=== PATIENT | male | born 1955 | race Caucasian/White ===

== ENCOUNTER 2017-05-10 21:18 | Emergency (ER) | payer OTHER ==
[~2017-05-10] VITALS: Ht 162.6 cm; Wt 82.6 kg
[2017-05-10 21:27] VITALS: BP 139/84
[2017-05-10] MEDS ORDERED: predniSONE 20 MG TABLET ONE (22:24)
[2017-05-10] MEDS ORDERED: ALBUTEROL FS 2.5 MG/3 ML VIAL.NEB ONE (22:30)
[2017-05-10] MEDS ORDERED: IPRATROPIUM NEB FS 0.5 MG/2.5 ML AMPUL.NEB NEB ONE (22:30)
[2017-05-10] MEDS ORDERED: ALBUTEROL FS 2.5 MG/3 ML VIAL.NEB NEB ONE (22:30)
[2017-05-10] MEDS ORDERED: predniSONE 20 MG TABLET PO ONE (22:30)
[2017-05-10] MEDS ORDERED: IPRATROPIUM NEB FS 0.5 MG/2.5 ML AMPUL.NEB ONE (22:30)
== END 2017-05-10 23:22 | disposition home or self-care (01) ==
LOC: ER 21:18
DX: J20.9 Acute bronchitis, unspecified (principal); E11.9 Type 2 diabetes mellitus without complications; Z89.612 Acquired absence of left leg above knee
CPT/HCPCS: 71010; 94640; 99283; A4606; J7512; Z7610

== ENCOUNTER 2018-01-04 17:58 | Inpatient (IN) | payer OTHER ==
[~2018-01-04] VITALS: Ht 162.6 cm; Wt 67.3 kg
--- NOTE | 2018-01-04 18:10 | NUR ---
PT A/O X2 CONFUSED. FAMILY AT BED SIDE. NEG SOB. NEG DISTRESS. VSS. SAFETY MEASURES IN PLACE.
[2018-01-04 18:23] LABS: BASOPHILS # (AUTO) 0.1 /CMM (0.0-0.2); BASOPHILS % (AUTO) 0.6 % (0.0-2.0); EOSINOPHILS % (AUTO) 2.5 % (0.0-6.0); HEMATOCRIT 46 % (39-51); HEMOGLOBIN 16.4 g/dL (13.5-17.5); LYMPHOCYTES % (AUTO) 19.3 % (20.0-44.0); MEAN CORPUSCULAR HEMOGLOBIN 29 PG (26.0-33.0); MEAN CORPUSCULAR HGB CONC 36 g/dl (31.0-36.0); MEAN CORPUSCULAR VOLUME 81 fL (80-96); MONOCYTES # (AUTO) 0.7 /CMM (0.1-1.30); MONOCYTES % (AUTO) 6.8 % (2.0-12.0); NEUTROPHILS # (AUTO) 7.1 /CMM (1.8-8.9); NEUTROPHILS % (AUTO) 70.8 % (43.0-81.0); PLATELET COUNT (AUTO) 410 /CMM (150-450); RDW COEFFICIENT OF VARIATION 11.8 (11.5-15.0); RED BLOOD CELL COUNT(AUTO) 5.61 MIL/uL (4.5-6.0); WHITE BLOOD COUNT (AUTO) 10.2 K/uL (4.3-11.0)
[2018-01-04] MEDS ORDERED: WARF-68 PO (18:35)
[2018-01-04] MEDS ORDERED: HYDR-3980 PO (18:35)
[2018-01-04] MEDS ORDERED: GLIM4TAB2 PO (18:35)
[2018-01-04] MEDS ORDERED: SITA100T PO (18:35)
[2018-01-04] MEDS ORDERED: BENA10TA2 PO (18:35)
[2018-01-04] MEDS ORDERED: SERT100T12 PO (18:35)
[2018-01-04] MEDS ORDERED: GABA600T2 PO (18:35)
[2018-01-04] MEDS ORDERED: PRAV20TA4 PO (18:35)
[2018-01-04] MEDS ORDERED: [UNRECOGNIZED DRUG - CODE] (18:35)
[2018-01-04] MEDS ORDERED: ALPR0.5T8 PO (18:38)
[2018-01-04 19:05] LABS: INR 0.95 (0.85-1.15)
[2018-01-04 19:07] LABS: ALANINE AMINOTRANSFERASE 20 U/L (12-78); ALBUMIN 3.8 g/dL (3.4-5.0); ALKALINE PHOSPHATASE 71 U/L (46-116); ASPARTATE AMINOTRANSFERASE 11 U/L (15-37); BILIRUBIN,DIRECT 0.1 mg/dL (0.0-0.2); BILIRUBIN,TOTAL 0.6 mg/dL (0.2-1.0); CALCIUM, SERUM 9.1 mg/dL (8.5-10.1); CARBON DIOXIDE 25 mmol/L (21-32); CHLORIDE 103 mmol/L (98-107); CREATININE 0.9 mg/dL (0.6-1.3); GLUCOSE 264 mg/dL (74-106); POTASSIUM 3.2 mmol/L (3.5-5.1); SODIUM SERUM 139 mmol/L (136-145); UREA NITROGEN, BLOOD 18 mg/dL (7-18)
[2018-01-04 19:10] LABS: TROPONIN I < 0.017 ng/mL (0.00-0.056)
--- NOTE | 2018-01-04 19:14 | NUR ---
RECEIVED REPORT FROM HIREN GAUTHIER FOR MARYJO.
--- NOTE | 2018-01-04 19:49 | NUR ---
CALLED NURSE SUP FOR TELE BED
--- NOTE | 2018-01-04 19:50 | NUR ---
MARGY MENG - VISITOR USE ASSISTANT KEMI HESTER Addendum: 01/04/18 at 2019 by ADITHYA MACI POOLE
[2018-01-04] MEDS ORDERED: ASPIRIN 325 MG TABLET ONE (20:17)
[2018-01-04] MEDS ORDERED: IV NS 0.9% 1,000 ML IV PRN (20:23)
[2018-01-04] MEDS ORDERED: Z GUARD REMEDY 2 OZ OINT TP PRN (20:30)
[2018-01-04] MEDS ORDERED: ACETAMINOPHEN 325 MG TABLET PO PRN (20:30)
[2018-01-04] MEDS ORDERED: MAGNESIUM HYDROXIDE 30 ML UDC PO PRN (20:30)
[2018-01-04] MEDS ORDERED: ASPIRIN 325 MG TABLET PO ONE (20:30)
[2018-01-04] MEDS ORDERED: MAG HYDROX/AL HYDROX/SIMETH 30 ML UDC PO PRN (20:30)
[2018-01-04] MEDS ORDERED: ONDANSETRON HCL/PF 4 MG/2 ML VIAL IVP PRN (20:30)
--- NOTE | 2018-01-04 20:50 | NUR ---
REPORT GIVEN TO ENOCH GIL FOR MARYJO
[2018-01-04] MEDS ORDERED: DEXTROSE 50%-WATER 50 ML DISP.SYRIN IV PRN (21:00)
[2018-01-04] MEDS: GABAPENTIN 300 MG CAPSULE PO SCH (21:00)
--- NOTE | 2018-01-04 21:35 | NUR ---
ADVERTISING SALES ASSISTANT - ADMISSION NOTES Patient received from ED via [facility] for chief complaints of sudden slurred speech per patient and . Labs shows potassium of 3.2. CXR shows lungs clear, Normal heart size, no pleural effusion, no pneumothorax. Head CT shows no acute intracranial hemorrhage, midline shift, extra-axial collection or hydrocephalus. No mild effuse cerebral volume loss. Skin body assessment done. Left AKA in 2011. Per patient and , Only known medical problem is Diabetes. Patient denies any type of pain. NPO for MRI for tomorrow, 01/05/18. Consent signed. Stroke assessment done. Normal breathing with no SOB noted or reported. TELE monitor shows SR, HR 55-58. Belongings list checked and signed with . FULL CODE. Safety measures in place. Oriented in unit. Bed in lowest position with call light within reach. Will continue to monitor and assess patient
--- NOTE | 2018-01-04 21:40 | NUR ---
YOUTH COORDINATOR NOTES - NON-ADMIN MEDS Per Jonny Lee, hold PO meds. Only administer IV and SQ meds. Patient is NPO for MRI tomorrow 01/05/18
[2018-01-04 22:00] VITALS: BP 140/67
[2018-01-04] MEDS: ATORVASTATIN 40 MG TABLET PO SCH (22:00)
[2018-01-04] MEDS: SERTRALINE HCL 50 MG TABLET PO SCH (22:00)
--- NOTE | 2018-01-04 22:53 | NUR ---
INITIAL CAROTID DUPLEX IMAGING SHOWED LARGE CLOT (45-50% OCCLUDED) LOCATED AT RIGHT BULB AREA. INFORMED ATTENDING NURSE (GHAZAL) AND CHARGE NURSE (SHY) OF PRELIMINARY RESULTS.
[2018-01-04] MEDS: POTASSIUM CL. PREMIX PERIPHER. 50 ML IV SCH (23:23)
[2018-01-04] MEDS: ENOXAPARIN SODIUM 40 MG/0.4 ML DISP.SYRIN SQ SCH (23:27)
--- NOTE | 2018-01-04 23:50 | NUR ---
GERIATRIC PHYSICIAN - ULTRASOUND & ECHO RESULT Carotid Artery Ultrasound preliminary result shows prominent focus of mixed atherosclerotic plaque in the right carotid bulb. FISH CLEANER made aware. ECHO preliminary result was also relayed to FISH CLEANER. No new orders indicated at this moment.
[2018-01-04] MEDS: BLOOD SUGAR DIAGNOSTIC 1 EACH STRIP IN SCH (23:53)
--- NOTE | 2018-01-04 23:55 | NUR ---
PULP SCREEN OPERATOR - NON-ADMIN NOTES BS 207. No insulin given. Patient NPO. To be evaluated by speech therapist for swallow eval. No hyper/hypoglycemia signs & symptoms noted.
[2018-01-05] VITALS (7 sets, daily range): BP systolic 138–151; BP diastolic 75–97
[2018-01-05] MEDS: POTASSIUM CL. PREMIX PERIPHER. 50 ML IV SCH (01:00)
--- NOTE | 2018-01-05 05:30 | NUR ---
FILLER SHAKER - POTASSIUM REPLACEMENT Last dose of potassium supplement given @0200. Unable to scan barcode d/t down time. Please see paper eMar.
--- NOTE | 2018-01-05 05:46 | NUR ---
TEXTED DR. ROBERTS FOR MRI APPROVAL.
[2018-01-05 06:22] LABS: BASOPHILS % (AUTO) 0.4 % (0.0-2.0); EOSINOPHILS % (AUTO) 3.3 % (0.0-6.0); HEMATOCRIT 45 % (39-51); HEMOGLOBIN 15.4 g/dL (13.5-17.5); LYMPHOCYTES % (AUTO) 22.4 % (20.0-44.0); MEAN CORPUSCULAR HEMOGLOBIN 29 PG (26.0-33.0); MEAN CORPUSCULAR HGB CONC 34 g/dl (31.0-36.0); MEAN CORPUSCULAR VOLUME 86 fL (80-96); MONOCYTES # (AUTO) 0.7 /CMM (0.1-1.30); MONOCYTES % (AUTO) 7.5 % (2.0-12.0); NEUTROPHILS % (AUTO) 66.4 % (43.0-81.0); PLATELET COUNT (AUTO) 385 /CMM (150-450); RDW COEFFICIENT OF VARIATION 12.8 (11.5-15.0); RED BLOOD CELL COUNT(AUTO) 5.27 MIL/uL (4.5-6.0); WHITE BLOOD COUNT (AUTO) 9.1 K/uL (4.3-11.0)
[2018-01-05 06:36] LABS: INR 1.06 (0.87-1.13)
[2018-01-05 06:46] LABS: THYROID STIMULATING HORMONE 1.389 uIU/mL (0.358-3.74)
--- NOTE | 2018-01-05 06:46 | NUR ---
SAVINGS TELLER CLOSING NOTES Patent rested, easily arousable. Currently awake and verbally responsive. No complaints of any pain/chest pain. Not in any type of distress. NPO for MRI of the brain and ST eval. IV on Right AC 18g: patent and intact with NS @75ml/hr running. Tele monitor shows SR, HR 65. Stroke pamphlet provided to patient. Potassium replaced. All need provided and met. Safety measures in place. Bed in lowest position with call light within reach. Will continue to monitor patient and will endorse to oncoming shift nurse.
[2018-01-05] MEDS: BLOOD SUGAR DIAGNOSTIC 1 EACH STRIP IN SCH ×4 (07:02→21:50)
[2018-01-05 07:12] LABS: CALCIUM, SERUM 8.8 mg/dL (8.5-10.1); CREATININE 0.8 mg/dL (0.6-1.3); MAGNESIUM 1.8 mg/dL (1.8-2.4); PHOSPHORUS 2.8 mg/dL (2.5-4.9); POTASSIUM 3.6 mmol/L (3.5-5.1)
--- NOTE | 2018-01-05 07:30 | NUR ---
MS/RN Patient received Patient received from control area operator. A/O X3, remains still with slurred speach, no weakness noted to either upper extremities. has slight droop to left side of mouth when smiling. Patient's at bedside, both updated as to plan of care for the day. Safety measures in place, will continue to monitor and ensure safety.
[2018-01-05] MEDS: GABAPENTIN 300 MG CAPSULE PO SCH ×2 (09:00→21:23)
[2018-01-05] MEDS: BENAZEPRIL HCL 10 MG TABLET PO SCH (09:00)
[2018-01-05] MEDS: ASPIRIN EC 325 MG TABLET.DR PO SCH ×2 (09:00→17:18)
--- NOTE | 2018-01-05 09:00 | NUR ---
MS/RN Medications Medications held until after swallow evaluation as per stroke protocol.
--- NOTE | 2018-01-05 09:15 | NUR ---
MS/RN MRI Radiology called to inquire as to time for MRI. Informed that still awaiting authorization from Dr Keyes.
--- NOTE | 2018-01-05 09:36 | NUR ---
MS/RN S/B Dr Otero Seen by Dr Otero - awaiting new orders.
--- NOTE | 2018-01-05 10:50 | NUR ---
Social service consult requested by MACI Aparicio for homelessness. Pt. is a 62 year old male who was admitted to [facility] for Stroke like symptoms. HANG met with pt. and his girlfriend Lynn bedside. Pt. is alert and oriented x 3. Pt. displays some slurred speech at times. Pt. and Lynn informed SW that they have been homeless for over four years now. They live in their truck. Pt. is non-ambulatory and wheelchair bound. SW inquired with pt. if he would be interested in a board and care. Pt. declined. SW offered homeless skilled nursing placement, they declined that as well. Pt. stated they are on top of the waitlist at [facility]. HANG gave pt. and his girlfriend application to [facility] which has an application deadline of 01/06/18. HANG also gave pt. and his girlfriend list of affordable housing that is currently accepting applications. List include [facility], [facility], [facility] affordable housing and [facility]. Pt's girlfriend Lynn told SW that they have all the homeless resources needed and utilize them. They have all their belongings in a storage. Pt. received approximately $1150 in SSI per month. Pt. denies alcohol, drugs and cigarette use. Per pt. he has no psychiatric diagnoses. No other social service needs are required at this time. SW is available, if needed.
--- NOTE | 2018-01-05 12:08 | NUR ---
MS/RN MRI Patient taken to MRI.
[2018-01-05] MEDS ORDERED: GADODIAMIDE 2.5 MMOL/5 ML VIAL IJ ONE (12:57)
--- NOTE | 2018-01-05 13:19 | NUR ---
MS/RN MRI report Received call from Dr Oakley (radiologist) - acute infarct involving the left caudate nucleus and frontal dewitt radiata. Dr Washington made aware, asked to informed Dr Otero, message sent. No new orders at this time. Continue to await for speech evaluation.
--- NOTE | 2018-01-05 15:44 | NUR ---
MS/RN S/B PT/OT/ST PT - able to ambulate safely and independently in hallway using crutches. OT - no new needs identified at this time. ST - puree diet / thin liquids, may advance in 2-3 days.
[2018-01-05] MEDS ORDERED: WARFARIN SODIUM 2 MG TABLET PO SCH (17:00)
[2018-01-05] MEDS: INSULIN REGULAR, HUMAN 100 UNIT/ML 3 ML VIAL SQ PRN ×2 (17:23→21:50)
--- NOTE | 2018-01-05 18:00 | NUR ---
MS/RN Education Patient and educated about signs and symptoms of stroke. Explained to patient the meaning of F - face drooping A - arm weakness S - speech difficulty T - time to call for help Stating understanding of all of the above.
--- NOTE | 2018-01-05 18:26 | NUR ---
MS/RN End note Still without any call back from Dr Otero, despite being text and called via exchange, message left with Holli at 13:20 stating that it was an urgent matter as patient's MRI was showing acute infarct. Charge nurse Osman, director Hitesh and stroke director Vanessa all aware. Per Dr Garcia, who was also informed, make sure that PT/OT/ST are completed which all have been. Patient remains in stable condition, all needs attended, call light within reach. Will endorse to mini shifter.
--- NOTE | 2018-01-05 19:45 | NUR ---
MS RN OPENING NOTE Patient was seen lying in bed AAOx3, breathing on RA with no SOB, and no signs of acute distress. Patient admitted on 01/04 for stroke/TIA - Currently patient still has mild expressive aphasia but no facial droop, no arm drift or weakness; patient is alert and oriented. NS at 75ml/hr is running through the right AC (18g). Left above the knee amputation is noted. Bed is in the low/locked position, two side rails up, and call yates within reach. Significant other is at the bedside. Patient has no immediate needs or concerns at this time. Will continue to monitor.
[2018-01-05] MEDS: ATORVASTATIN 40 MG TABLET PO SCH (21:23)
[2018-01-05] MEDS: SERTRALINE HCL 50 MG TABLET PO SCH (21:23)
[2018-01-05] MEDS: ENOXAPARIN SODIUM 40 MG/0.4 ML DISP.SYRIN SQ SCH (21:24)
[2018-01-05] MEDS ORDERED: INSULIN GLARGINE, 100 UNIT/ML CARTRIDGE SQ SCH (22:00)
[2018-01-05] MEDS ORDERED: INSULIN GLARGINE, 100 UNIT/ML CARTRIDGE SQ ONE (23:49)
[2018-01-06 07:30] LABS: BASOPHILS % (AUTO) 0.2 % (0.0-2.0); HEMATOCRIT 48 % (39-51); HEMOGLOBIN 16.2 g/dL (13.5-17.5); LYMPHOCYTES # (AUTO) 1.5 /CMM (0.8-4.8); LYMPHOCYTES % (AUTO) 11.8 % (20.0-44.0); MEAN CORPUSCULAR HEMOGLOBIN 29 PG (26.0-33.0); MEAN CORPUSCULAR HGB CONC 34 g/dl (31.0-36.0); MEAN CORPUSCULAR VOLUME 85 fL (80-96); MONOCYTES # (AUTO) 0.7 /CMM (0.1-1.30); MONOCYTES % (AUTO) 5.5 % (2.0-12.0); NEUTROPHILS # (AUTO) 10.6 /CMM (1.8-8.9); NEUTROPHILS % (AUTO) 81.5 % (43.0-81.0); PLATELET COUNT (AUTO) 428 /CMM (150-450); RDW COEFFICIENT OF VARIATION 12.8 (11.5-15.0); RED BLOOD CELL COUNT(AUTO) 5.64 MIL/uL (4.5-6.0); WHITE BLOOD COUNT (AUTO) 13.1 K/uL (4.3-11.0)
--- NOTE | 2018-01-06 07:40 | NUR ---
RN OPENING NOTE RECEIVED PT. PT STABLE AND SLEEPING IN BED. NO S/S OF RESP DISTRESS OR SOB. NO C/O PAIN. NO S/S OF FACIAL DROOPING, SPEECH IS APPROPRIATE WITHOUT SLUR. PT'S MRI FROM 01/05/18 RESULTED, TO DISCUSS RESULTS AND PLAN OF CARE WITH PT. SAFETY MEASURES IN PLACE. CALL LIGHT WITHIN REACH. WILL CONTINUE TO MONITOR.
--- NOTE | 2018-01-06 07:41 | NUR ---
MS RN CLOSING NOTE Patient slept well overnight with no acute events and no complaints. Patient remains in stable condition; call yates is within reach. Patient care has been endorsed to day shift RN.
[2018-01-06 07:49] LABS: INR 1.1 (0.87-1.13)
[2018-01-06 07:55] LABS: CALCIUM, SERUM 8.8 mg/dL (8.5-10.1); CREATININE 0.7 mg/dL (0.6-1.3); MAGNESIUM 1.8 mg/dL (1.8-2.4); PHOSPHORUS 3.2 mg/dL (2.5-4.9); POTASSIUM 3.5 mmol/L (3.5-5.1)
[2018-01-06 08:00] VITALS: BP 151/90
[2018-01-06] MEDS: BLOOD SUGAR DIAGNOSTIC 1 EACH STRIP IN SCH ×2 (08:08→12:00)
[2018-01-06] MEDS: ASPIRIN EC 325 MG TABLET.DR PO SCH (08:12)
[2018-01-06] MEDS: GABAPENTIN 300 MG CAPSULE PO SCH (08:12)
[2018-01-06 08:16] VITALS: BP 151/90
[2018-01-06] MEDS: BENAZEPRIL HCL 10 MG TABLET PO SCH (08:16)
[2018-01-06] MEDS ORDERED: ASPI-1169 PO (10:58)
--- NOTE | 2018-01-06 14:30 | NUR ---
DISCHARGE NOTE PT DISCHARGED HOME. NO S/S OF RESP DISTRESS OR SOB. NO C/O PAIN AT THIS TIME. DISCHARGE INSTRUCTIONS GIVEN TO PT. PT VERBALIZES UNDERSTANDING. ALL DISCHARGE PAPERWORK AND BELONGINGS SHEET SIGNED, COPIED AND PLACED IN CHART. MEDICATION TEACHING PERFORMED REGARDING ASPIRIN REGIMEN AND D/C OF WARFARIN, PT VERBALIZES UNDERSTANDING OF TEACHING. IV ACCESS AND ID BAND REMOVED. PT LEFT HOSPITAL WITH GIRLFRIEND IN PRIVATE VEHICLE.
== END 2018-01-06 14:40 | disposition home or self-care (01) | DRG 45 ==
LOC: ER 18:00 → TELE 20:21 → MED 01-05 08:20
PROVIDERS: ADMIT Nurse Practitioner Acute Care; ATTEND Nurse Practitioner Acute Care
DX: I63.9 Cerebral infarction, unspecified (principal); G93.40 Encephalopathy, unspecified; R47.01 Aphasia; G62.9 Polyneuropathy, unspecified; I10 Essential (primary) hypertension; E11.9 Type 2 diabetes mellitus without complications; E78.5 Hyperlipidemia, unspecified; E87.6 Hypokalemia; F41.9 Anxiety disorder, unspecified; F32.9 Major depressive disorder, single episode, unspecified; Z89.512 Acquired absence of left leg below knee; Z91.14 Patient's other noncompliance with medication regimen; Z59.0 Homelessness; I65.23 Occlusion and stenosis of bilateral carotid arteries; Z79.01 Long term (current) use of anticoagulants
CPT/HCPCS: 36415; 70450-TC; 70553-TC; 71045-TC; 80048-TC; 80061-TC; 80076-TC; 82962-TC; 83735-TC; 84100-TC; 84443-TC; 84484-TC; 85025-TC; 85610-TC; 85652-TC; 85730-TC; 87081-TC; 92611-TC; 93307-TC; 93880-TC; A4606; A6253; J1650; J1815; J3480; J7030; Z7610

== ENCOUNTER 2018-07-12 17:11 | Emergency (ER) | payer OTHER ==
[~2018-07-12] VITALS: Ht 162.6 cm; Wt 69.9 kg
[~2018-07-12 17:11] MED LIST: ALPR0.5T8 PO; ASPI-1169 PO; BENA10TA9 PO; GABA600T2 PO; GLIM4TAB2 PO; HYDR-3980 PO; PRAV20TA4 PO; SERT100T12 PO; SITA100T PO; WARF-68 PO; [UNRECOGNIZED DRUG - CODE]
[2018-07-12] MEDS ORDERED: ONDANSETRON HCL/PF 4 MG/2 ML VIAL ONE (17:39)
[2018-07-12 17:53] LABS: BASOPHILS % (AUTO) 0.3 % (0.0-2.0); HEMATOCRIT 47 % (39-51); HEMOGLOBIN 16.5 g/dL (13.5-17.5); LYMPHOCYTES # (AUTO) 0.4 /CMM (0.8-4.8); LYMPHOCYTES % (AUTO) 3.9 % (20.0-44.0); MEAN CORPUSCULAR HGB CONC 35 g/dl (31.0-36.0); MEAN CORPUSCULAR VOLUME 85 fL (80-96); MONOCYTES # (AUTO) 0.9 /CMM (0.1-1.30); MONOCYTES % (AUTO) 9.1 % (2.0-12.0); NEUTROPHILS # (AUTO) 8.7 /CMM (1.8-8.9); NEUTROPHILS % (AUTO) 86.7 % (43.0-81.0); PLATELET COUNT (AUTO) 350 /CMM (150-450); RED BLOOD CELL COUNT(AUTO) 5.57 MIL/uL (4.5-6.0)
--- NOTE | 2018-07-12 17:53 | NUR ---
PT BIB SELF c/o SOB and cough x 1 day h/o CVA and left AKA. Alert and oriented x 4, verbally responsive, and able to make needs known. On room air, breathing evenly, and unlabored. Denies any pain at this time. kept comfortable, will continue to monitor accordingly.
[2018-07-12] MEDS ORDERED: ONDANSETRON HCL/PF 4 MG/2 ML VIAL IVP ONE (18:00)
[2018-07-12] MEDS ORDERED: IV NS 0.9% 1,000 ML BAG IV ONE (18:00)
[2018-07-12 18:05] LABS: CALCIUM, SERUM 8.9 mg/dL (8.5-10.1); CARBON DIOXIDE 22 mmol/L (21-32); CHLORIDE 97 mmol/L (98-107); CREATININE 0.8 mg/dL (0.6-1.3); GLUCOSE 268 mg/dL (74-106); POTASSIUM 3.5 mmol/L (3.5-5.1); SODIUM SERUM 133 mmol/L (136-145); UREA NITROGEN, BLOOD 31 mg/dL (7-18)
[2018-07-12 18:11] LABS: ALANINE AMINOTRANSFERASE 18 U/L (12-78); ALBUMIN 3.6 g/dL (3.4-5.0); ALKALINE PHOSPHATASE 72 U/L (46-116); ASPARTATE AMINOTRANSFERASE 28 U/L (15-37); BILIRUBIN,DIRECT 0.1 mg/dL (0.0-0.2); BILIRUBIN,TOTAL 0.6 mg/dL (0.2-1.0); TOTAL PROTEIN, SERUM 7.9 g/dL (6.4-8.2)
[2018-07-12 18:47] LABS: APPEARANCE,URINE Clear (CLEAR); BILIRUBIN,URINE SMALL (NEGATIVE); BLOOD, URINE Large Ery/uL (NEGATIVE); COLOR,URINE Dark (YELLOW); KETONES,URINE 80 (NEGATIVE); LEUKOCYTE ESTERASE ,URINE Negative (NEGATIVE); NITRITE, URINE Negative (NEGATIVE); PH,URINE 5.5 (5.0-8.0); PROTEIN,URINE >=300 mg/dl (NEGATIVE); UGLUCOSE 500 MG/DL mg/dL (NEGATIVE)
[2018-07-12 19:03] LABS: BACTERIA,URINE Few /HPF (None Seen); SQUAMOUS EPITHELIAL CELL,UR Few /HPF (None Seen)
--- NOTE | 2018-07-12 19:19 | NUR ---
Report given to ayla MARADIAGA for jorgito.
--- NOTE | 2018-07-12 19:51 | NUR ---
IV removed. Catheter intact and site benign. Pressure and 4x4 applied to site. No bleeding noted.Patient discharged to home in stable condition. Written and verbal after care instructions given. Patient verbalizes understanding of instruction.
[2018-07-12 19:52] VITALS: BP 124/75
== END 2018-07-12 19:53 | disposition home or self-care (01) ==
LOC: ER 17:14
DX: J06.9 Acute upper respiratory infection, unspecified (principal); E11.9 Type 2 diabetes mellitus without complications; Z95.5 Presence of coronary angioplasty implant and graft; Z89.612 Acquired absence of left leg above knee; Z79.82 Long term (current) use of aspirin
CPT/HCPCS: 36415; 71045-TC; 80048-TC; 80076-TC; 81000-TC; 83605-TC; 84484-TC; 85025-TC; 85730-TC; 87040-TC; 87086-TC; 87400; A4606; J2405; Z7610

== ENCOUNTER 2018-10-23 11:06 | Emergency (ER) | payer OTHER ==
[~2018-10-23] VITALS: Ht 162.6 cm; Wt 68.9 kg
[~2018-10-23 11:06] MED LIST changes: +GABA600T12 PO; -GABA600T2 PO
[2018-10-23 11:18] VITALS: BP 147/72
[2018-10-23] MEDS ORDERED: ALBUTEROL FS 2.5 MG/3 ML VIAL.NEB NEB ONE (12:30)
[2018-10-23] MEDS ORDERED: IPRATROPIUM NEB FS 0.5 MG/2.5 ML AMPUL.NEB NEB ONE (12:30)
[2018-10-23] MEDS ORDERED: IPRATROPIUM NEB FS 0.5 MG/2.5 ML AMPUL.NEB ONE (12:39)
[2018-10-23] MEDS ORDERED: ALBUTEROL FS 2.5 MG/3 ML VIAL.NEB ONE (12:39)
== END 2018-10-23 13:32 | disposition home or self-care (01) ==
LOC: ER 11:45
DX: J20.9 Acute bronchitis, unspecified (principal); E11.9 Type 2 diabetes mellitus without complications; F12.10 Cannabis abuse, uncomplicated; Z89.612 Acquired absence of left leg above knee; Z95.5 Presence of coronary angioplasty implant and graft; Z79.82 Long term (current) use of aspirin; Z79.01 Long term (current) use of anticoagulants